=== PATIENT | female | born 1985 | race Caucasian/White ===

== ENCOUNTER 2017-01-14 13:12 | Emergency (ER) | payer MEDICAID ==
[~2017-01-14] VITALS: Ht 160 cm; Wt 61.0 kg
[2017-01-14 13:15] VITALS: Ht 160 cm; Wt 61.0 kg
[2017-01-14] MEDS ORDERED: ACETAMINOPHEN 500 MG TAB PO STA (14:42)
[2017-01-14] MEDS ORDERED: SOD CHLORIDE 0.9% 1,000 ML IV STA (14:42)
[2017-01-14] MEDS ORDERED: ONDANSETRON 4 MG INJ IV STA (14:45)
[2017-01-14] MEDS ORDERED: SOD CHLORIDE 0.9% IV ONE (15:00)
[2017-01-14] MEDS ORDERED: IBUPROFEN 600 MG TAB PO ONE (15:00)
[2017-01-14 15:11] LABS: URINE BLOOD (Dip) POC 3+ (NEGATIVE)
[2017-01-14 15:16] LABS: BASOPHILS % 0.2 % (0.0-2.0); EOSINOPHILS % 0.1 % (0.0-7.0); HEMATOCRIT 39.6 % (37.0-47.0); HEMOGLOBIN 13.1 g/dl (12.0-16.0); LYMPHOCYTES # 0.9 10^3/ul (0.8-2.9); LYMPHOCYTES % 8.4 % (15.0-51.0); MEAN CORPUSCULAR HEMOGLOBIN 31.3 pg (29.0-33.0); MEAN CORPUSCULAR HGB CONC 33.1 g/dl (32.0-37.0); MEAN CORPUSCULAR VOLUME 94.7 fl (82.0-101.0); MEAN PLATELET VOLUME 9.7 fl (7.4-10.4); MONOCYTE # 0.4 10^3/ul (0.3-0.9); NEUTROPHIL # 9.6 10^3/ul (1.6-7.5); NEUTROPHILS % 86.9 % (39.0-77.0); PLATELET COUNT 219 10^3/UL (140-415); RED BLOOD COUNT 4.18 10^6/ul (4.20-5.40); RED CELL DISTRIBUTION WIDTH 12.4 % (11.5-14.5)
[2017-01-14 15:44] LABS: ALBUMIN 4.3 g/dl (3.3-4.9); ALBUMIN/GLOBULIN RATIO 1.13; BILIRUBIN,INDIRECT 0.3 mg/dl (0-1.1); BILIRUBIN,TOTAL 0.3 mg/dl (0.2-1.3); CREATININE 0.81 mg/dl (0.44-1.00); POTASSIUM 3.6 mmol/L (3.5-5.1); TOTAL PROTEIN 8.1 g/dl (6.1-8.1)
[2017-01-14 15:49] LABS: ADD UMIC YES; UR ASCORBIC ACID NEGATIVE (NEGATIVE); UR BACTERIA FEW /HPF (NONE SEEN); UR BILIRUBIN (Dip) NEGATIVE (NEGATIVE); UR BLOOD (Dip) 2+ mg/dL (NEGATIVE); UR CLARITY CLOUDY (CLEAR); UR COLOR YELLOW (YELLOW); UR GLUCOSE (Dip) NEGATIVE (NEGATIVE); UR KETONES (Dip) TRACE mg/dL (NEGATIVE); UR LEUKOCYTE ESTERASE (Dip) 3+ Leu/ul (NEGATIVE); UR NITRITE (Dip) NEGATIVE (NEGATIVE); UR RBC 7 /HPF (0-5); UR SPECIFIC GRAVITY (Dip) 1.004 (1.003-1.030); UR SQUAMOUS EPITHELIAL CELL FEW /HPF (FEW); UR TOTAL PROTEIN (Dip) NEGATIVE (NEGATIVE); UR UROBILINOGEN (Dip) NEGATIVE (NEGATIVE)
--- NOTE | 2017-01-14 16:32 | RADRPT ---
PROCEDURE: CT Abdomen and Pelvis without contrast. CLINICAL INDICATION: Right lower quadrant abdominal pain radiating to back for 2 days. TECHNIQUE: Multiple contiguous axial CT images of the abdomen and pelvis were obtained without the administration of intravenous contrast. Coronal and sagittal reconstructions were also performed. CTDIvol (mGy): 5.75; Total Exam DLP (mGy-cm): 324.59. One or more of the following dose reduction techniques were utilized: - Automated exposure control. - Adjustment of the mA and/or kV according to patient size. - Use of iterative reconstruction technique. COMPARISON: None. FINDINGS: Limited imaging of the lower thorax is unremarkable. The liver and spleen are homogeneous in density. The gallbladder, pancreas and adrenal glands are u nremarkable. The kidneys are symmetric in size. There are no nephroureteral stones. Moderate right perinephric f at stranding is observed. There is no evidence of perinephric fluid collection. The abdominal aorta is normal in caliber. There is no periaortic / retroperitoneal lymphadenopathy. The stomach and small and large intestines are unremarkable. The appendix is normal. There are no focal inflammatory changes of the mesentery. There is no mesenteric lymphadenopathy. There is no a scites. The bladder, uterus and adnexa are unremarkable. There is no free pelvic fluid. There is no pelvic sidewall or inguinal lymphadenopathy. Skeletal structures are unremarkable. Body wall soft tissues are unremarkable. IMPRESSION: Moderate right perinephric inflammatory edema. There is no evidence of nephroureterolithiasis or uri nary tract obstruction. Imaging findings may reflect sequelae of upper urinary tract infection/pyelo nephritis or edema from recently passed stone. Correlate with appropriate clinical data and signs an d symptomatology. RPTAT: [id number] .Yudy Peace MD, MD Date Time Electronically viewed and signed by .Yudy Peace MD, on 01/14/2017 16:32 .T/
[2017-01-14] MEDS ORDERED: CEFTRIAXONE 1 GM/50 ML (PMX) 50 ML IVPB ONE (17:00)
[2017-01-14 17:28] VITALS: BP 104/51; PULSE 89; RESP 18; TEMP 98.4
[2017-01-14] MEDS ORDERED: NAPR-260 PO (17:39)
[2017-01-14] MEDS ORDERED: CIPR500T4 PO (17:39)
[2017-01-14] MEDS ORDERED: ONDA4TAB14 PO (17:41)
--- NOTE | 2017-01-14 17:46 | ERD ---
ER Documentation Chief Complaint Date/Time DATE: 01/14/17 TIME: 17:42 Chief Complaint abdominal pain since yesterday and headache HPI 31-year-old female patient with no significant past medical history presents to the ED complaining of right flank pain that started 2 weeks ago. Reports that the pain radiates to her right side of the abdomen. States that she also has a headache. Describes the pain as sharp and rates it a 10 out of 10. States that she has also been experiencing chills. She is also been experiencing nausea and 2 episodes of nonbilious nonbloody vomiting. Reports that she has some slight dysuria. States that she has been taking Zithromax scrubbed by her primary care physician. Denies any chest pain, shortness of breath, wheezing, diarrhea, constipation. Reports that she is currently on her menses. ROS All systems reviewed and are negative except as per history of present illness. Medications Home Meds Active Scripts Ondansetron (Ondansetron Odt) 4 Mg Tab.rapdis, 4 MG PO Q6H Y for NAUSEA AND/OR VOMITING, #10 TAB Prov:FAIZA TOBIAS PA-C 01/14/17 Naproxen* (Naprosyn*) 500 Mg Tablet, 500 MG PO BID Y for PAIN AND/OR INFLAMMATION, #30 TAB Prov:FAIZA TOBIAS PA-C 01/14/17 Ciprofloxacin Hcl* (Ciprofloxacin Hcl*) 500 Mg Tablet, 500 MG PO BID for 10 Days , TAB Prov:FAIZA TOBIAS PA-C 01/14/17 Allergies Allergies: Coded Allergies: No Known Allergy (Unverified , 03/12/13) PMhx/Soc History of Surgery: No Anesthesia Reaction: No Hx Neurological Disorder: No Hx Respiratory Disorders: No Hx Cardiac Disorders: No Hx Psychiatric Problems: No Hx Miscellaneous Medical Probl: Yes (C-SECTIONS) Hx Alcohol Use: No Hx Substance Use: No Hx Tobacco Use: No Physical Exam Vitals Vital Signs Date Time Temp Pulse Resp B/P Pulse Ox O2 Delivery O2 Flow Rate FiO2 01/14/17 17:28 98.4 89 18 104/51 98 Room Air 01/14/17 17:12 99.1 84 16 99 Room Air 01/14/17 13:15 102.2 122 18 119/67 99 Physical Exam Const: Grk-eic-yelweofko, well-nourished. In no acute distress. Head: Atraumatic, normocephalic Eyes: Normal Conjunctiva without injection. No purulent discharge. ENT: Normal external ear, nose. Moist oropharynx without tonsillar exudates. Non -erythematous pharynx. Uvula midline. No drooling. No trismus. Neck: No cervical midline tenderness. Full range of motion. No meningismus. No cervical lymphadenopathy. No JVD. Resp: Clear to auscultation bilaterally. No wheezing, rhonchi, rales, or crackles. No accessory muscle use. No retractions. Cardio: Regular rate and rhythm. No murmurs, rubs or gallops. Abd: Soft, slight mid right upper quadrant abdominal pain, non distended. Normal bowel sounds. No palpable masses. No rebound tenderness. No guarding. Negative McBurney's point. Negative psoas sign. Negative obturator sign. : See exam in MDM. Skin: No petechiae or rashes Back: No midline tenderness. Right CVA tenderness. Ext: No cyanosis, or edema. Neur: Awake and alert. Normal gait. Normal coordination. Psych: Normal Mood and Affect Result Diagram: 01/14/17 1500 01/14/17 1500 Results 24 hrs Laboratory Tests Test 01/14/17 15:00 01/14/17 15:18 01/14/17 15:30 White Blood Count 11.010^3/ul Red Blood Count 4.1810^6/ul Hemoglobin 13.1g/dl Hematocrit 39.6% Mean Corpuscular Volume 94.7fl Mean Corpuscular Hemoglobin 31.3pg Mean Corpuscular Hemoglobin Concent 33.1g/dl Red Cell Distribution Width 12.4% Platelet Count 49830^3/UL Mean Platelet Volume 9.7fl Neutrophils % 86.9% Lymphocytes % 8.4% Monocytes % 4.0% Eosinophils % 0.1% Basophils % 0.2% Nucleated Red Blood Cells % 0.0/100WBC Neutrophils # 9.610^3/ul Lymphocytes # 0.910^3/ul Monocytes # 0.410^3/ul Eosinophils # 0.010^3/ul Basophils # 0.010^3/ul Nucleated Red Blood Cells # 0.010^3/ul Urine Color YELLOW Urine Clarity CLOUDY Urine pH 6.0 Urine Specific [place] 1.004 Urine Ketones TRACEmg/dL Urine Nitrite NEGATIVEmg/dL Urine Bilirubin NEGATIVEmg/dL Urine Urobilinogen NEGATIVEmg/dL Urine Leukocyte Esterase 3+Rohith/ul Urine Microscopic RBC 7/HPF Urine Microscopic WBC > 182/HPF Urine Squamous Epithelial Cells FEW/HPF Urine Bacteria FEW/HPF Urine Hemoglobin 2+mg/dL Urine Glucose NEGATIVEmg/dL Urine Total Protein NEGATIVEmg/dl Sodium Level 135mmol/L Potassium Level 3.6mmol/L Chloride Level 97mmol/L Carbon Dioxide Level 27mmol/L Anion Gap 15 Blood Urea Nitrogen 7mg/dl Creatinine 0.81mg/dl Glucose Level 114mg/dl Calcium Level 9.0mg/dl Total Bilirubin 0.3mg/dl Direct Bilirubin 0.00mg/dl Indirect Bilirubin 0.3mg/dl Aspartate Amino Transf (AST/SGOT) 22IU/L Alanine Aminotransferase (ALT/SGPT) 37IU/L Alkaline Phosphatase 125IU/L Total Protein 8.1g/dl Albumin 4.3g/dl Globulin 3.80g/dl Albumin/Globulin Ratio 1.13 Lipase 19U/L Bedside Urine pH (LAB) 6.5 Bedside Urine Protein (LAB) 1+ Bedside Urine Glucose (UA) Negative Bedside Urine Ketones (LAB) 1+ Bedside Urine Blood 3+ Bedside Urine Nitrite (LAB) Negative Bedside Urine Leukocyte Esterase (L 2+ Lactic Acid Level 1.0mmol/L Current Medications Medications (Trade) Dose Ordered Sig/Kirsten Route PRN Reason Start Time Stop Time Status Last Admin Dose Admin Sodium Chloride (NS) 1,000 ml @ 1,000 mls/hr Q1H STAT IV 01/14/17 14:42 01/14/17 15:41 Cancel Ibuprofen (Motrin) 600 mg ONCE ONCE PO 01/14/17 15:00 01/14/17 15:01 DC 01/14/17 15:18 Acetaminophen (Tylenol Tab) 500 mg ONCE STAT PO 01/14/17 14:42 01/14/17 14:45 DC 01/14/17 15:19 Ondansetron HCl 4 mg 4 mg ONCE STAT IV 01/14/17 14:45 01/14/17 14:46 DC 01/14/17 15:18 Sodium Chloride 1,890 ml @ 1,890 mls/hr BOLUS X1 ONCE IV 01/14/17 15:00 01/14/17 15:59 DC 01/14/17 15:21 Ceftriaxone Sodium (Rocephin) 50 ml @ 100 mls/hr ONCE ONCE IVPB 01/14/17 17:00 01/14/17 17:29 DC 01/14/17 17:20 Procedures/MDM 31-year-old female patient with no significant past medical history presents to the ED complaining of right flank pain that radiates down to her abdomen that started yesterday. Patient has a fever of 102.2. Patient is tachycardic at 122. Patient meets SIRS criteria. Patient will be given 30 mL/kg of normal saline. Patient was further worked up with CBC, CMP, lipase, UA, CT of the abdomen and pelvis without contrast. Patient's pain and symptoms have improved after treatment with Tylenol, 4 mg IV Zofran, Ibuprofen. CBC: Leukocytosis of 11.0. No e/o anemia. CMP: No e/o severe acidosis, alkalosis, renal failure, diabetic ketoacidosis, liver disease Lipase within normal limits. Lactic acid 1.0 Urine: No leukocyte esterase, no nitrites, no hematuria. Urine : negative PROCEDURE: CT Abdomen and Pelvis without contrast. CLINICAL INDICATION: Right lower quadrant abdominal pain radiating to back for 2 days. TECHNIQUE: Multiple contiguous axial CT images of the abdomen and pelvis were obtained without the administration of intravenous contrast. Coronal and sagittal reconstructions were also performed. CTDIvol (mGy): 5.75; Total Exam DLP (mGy-cm): 324.59. One or more of the following dose reduction techniques were utilized: - Automated exposure control. - Adjustment of the mA and/or kV according to patient size. - Use of iterative reconstruction technique. COMPARISON: None. FINDINGS: Limited imaging of the lower thorax is unremarkable. The liver and spleen are homogeneous in density. The gallbladder, pancreas and adrenal glands are unremarkable. The kidneys are symmetric in size. There are no nephroureteral stones. Moderate right perinephric fat stranding is observed. There is no evidence of perinephric fluid collection. The abdominal aorta is normal in caliber. There is no periaortic / retroperitoneal lymphadenopathy. The stomach and small and large intestines are unremarkable. The appendix is normal. There are no focal inflammatory changes of the mesentery. There is no mesenteric lymphadenopathy. There is no ascites. The bladder, uterus and adnexa are unremarkable. There is no free pelvic fluid. There is no pelvic sidewall or inguinal lymphadenopathy. Skeletal structures are unremarkable. Body wall soft tissues are unremarkable. IMPRESSION: Moderate right perinephric inflammatory edema. There is no evidence of nephroureterolithiasis or urinary tract obstruction. Imaging findings may reflect sequelae of upper urinary tract infection/pyelonephritis or edema from recently passed stone. Correlate with appropriate clinical data and signs and symptomatology. Patient has moderate right perinephric inflammatory edema consistent with probable pyelonephritis based on her urinalysis showing leukocyte esterase with greater than 182 white blood cells. Patient also has right CVA tenderness. Low suspicion for septic renal stone, ectopic , ovarian torsion, gastritis, GERD, peptic ulcer disease, cholecystitis, choledocholithiasis, cholangitis, pancreatitis, appendicitis, bowel obstruction, ileus, volvulus, nephrolithiasis, pyelonephritis, hepatitis, perforated viscus, diverticulitis, strangulated/incarcerated hernia, DKA, acute abdomen, mesenteric ischemia or other emergent conditions. Discharge medications:, Naproxen, Ciprofloxacin, Zofran Follow up with primary care physician in 1-2 days for referral to liner worker. Instructed patient to return to the ED sooner for any worsening symptoms. Patient's questions were answered. Patient understood and agreed with discharge plan. Patient discharged stable. Departure Diagnosis: Primary Impression: Right flank pain Condition: Stable Patient Instructions: Pyelonephritis, Female (Adult) [facility] Usted se grove hecho un examen mdico de control que le indica que no est en juan condicin que requiera tratamiento urgente en el Departamento de Emergencia. Un estudio ms profundo y el tratamiento de lujan condicin pueden esperar sin ningn riesgo hasta que usted sea atendida/o en el consultorio de lujan mdico o juan cl gómez. Es responsabilidad suya arreglar juan neil para el seguimiento del stephanie. MANEJO DE CONDICIONES NO URGENTES EN EL FUTURO 1) Si usted tiene un mdico de atencin primaria: Usted debera llamar a lujan mdico de atencin primaria antes de venir al departamento de emergencia. Despus de las horas de consultorio, lujan doctor o lujan asociado/a est disponible por telfono. El mdico o enfermero de rubi en el servicio telefnico puede asesorarle por candelario medio para atender el problema, o stephanie contrario se puede programar juan neil. 2) Si usted no tiene un mdico de atencin primaria: Llame al mdico o clnica de referencia que aparece abajo jose manuel las horas de consultorio para hacer juan neil para que le vean. CLINICAS: [facility] [phone] [facility] [phone] [facility] [phone] [facility]. [place] [id number] [phone] [facility] [place] [id number] [phone] [facility]. [phone] [address] [facility]. [facility] () Usted se grove hecho un examen mdico de control que le indica que no est en juan condicin que requiera tratamiento urgente en el Departamento de Emergencia. Un estudio ms profundo y el tratamiento de lujan condicin pueden esperar sin ningn riesgo hasta que usted sea atendida/o en el consultorio de lujan mdico o juan cl gómez. Es responsabilidad suya arreglar juan neil para el seguimiento del stephanie. MANEJO DE CONDICIONES NO URGENTES EN EL FUTURO 1) Si usted tiene un mdico de atencin primaria: Usted debera llamar a lujan mdico de atencin primaria antes de venir al departamento de emergencia. Despus de las horas de consultorio, lujan doctor o lujan asociado/a est disponible por telfono. El mdico o enfermero de rubi en el servicio telefnico puede asesorarle por candelario medio para atender el problema, o stephanie contrario se puede programar juan neil. 2) Si usted no tiene un mdico de atencin primaria: Llame al mdico o condado institucions de referencia que aparece abajo jose manuel las horas de consultorio para hacer juan neil para que le vean. SI USTED NO PUEDE PAGAR PARA BELEN UN MEDICO puede ir a: [facility] [address] [place] [address] [facility] [address] [place] [address] [facility] [address] [place] [address] [facility] [address] [place], [place] [phone] [facility] URGENT CARE/SPECIALTIES Additional Instructions: Llame al doctor MAANA y priti juan NEIL PARA DENTRO DE 2-3 ANDRADE.Dgale a la secretaria que nosotros le instruimos hacer esta neil.Avise o llame si lujan condicin se empeora antes de la neil. Regresa aqui si peor o no mejor. FAIZA TOBIAS PA-C Jan 14, 2017 17:46
== END 2017-01-14 18:05 | disposition home or self-care (01) ==
LOC: FTE 13:12
DX: R10.11 Right upper quadrant pain (principal); R11.2 Nausea with vomiting, unspecified
CPT/HCPCS: 36415; 74176; 80053; 81001; 83605; 83690; 85025; 87040; 96365; 96375; J0696; J2405; Z7502; Z7610; 81003; J7030

== ENCOUNTER 2017-12-09 22:50 | Outpatient (CLI) | END 2017-12-10 01:17 | disposition home or self-care (01) ==

== ENCOUNTER 2017-12-27 14:13 | Inpatient (IN) | END 2017-12-29 14:50 | disposition home or self-care (01) | DRG 775 ==